=== PATIENT | male | born 1980 | race Hispanic/Latino ===

== ENCOUNTER 2017-01-18 23:01 | Emergency (ER) | payer SELFPAY | END 2017-01-18 23:30 | LOC: NAV ERS 23:01 | DX: K29.00 Acute gastritis without bleeding (principal); F17.210 Nicotine dependence, cigarettes, uncomplicated | CPT/HCPCS: 99283 ==

== ENCOUNTER 2023-03-06 20:02 | Emergency (ER) | payer OTHER, SELFPAY ==
[2023-03-06 20:28] LABS: #Basophils 0.1 thou/uL (0.0-0.2); #Eosinphils 0.3 thou/uL (0.0-0.7); #Lymphocytes 3.8 thou/uL (1.20-3.40); #Monocytes 0.7 thou/uL (0.11-0.59); #Neutrophils 6.4 thou/uL (1.40-6.50); %Basophils 0.8 % (0.0-1.0); %Eosinophils 2.4 % (0.0-10.0); %Lymphocytes 33.5 % (21.0-51.0); %Monocytes 5.9 % (0.0-10.0); %Neutrophils 57.3 % (42.0-75.0); Hemoglobin 16.7 g/dL (14.0-18.0); Mean Corpuscular HGB CONC 32.5 g/dL (32.0-36.0); Mean Corpuscular Hemoglobin 31.5 pg (27.0-31.0); Mean Corpuscular Volume 96.9 fl (78.0-98.0); Mean Platelet Volume 6.6 fL (7.4-10.4); Platelet Count 244 10x3/uL (130-400); RBC Distribution Width 12.8 % (11.5-14.5); Red Blood Cell (RBC) Count 5.31 mill/uL (4.70-6.10); White Blood Cell (WBC) Count 11.2 10x3/uL (4.8-10.8)
[2023-03-06 20:46] LABS: ALT (SGPT) 10 U/L (8-55); AST (SGOT) 20 U/L (5-34); Albumin 4.7 g/dL (3.5-5.0); Alcohol 201.2 mg/dL (Less than 10); Alkaline Phosphatase 62 U/L (40-110); Anion Gap 24 mmol/L (10-20); BUN (Urea Nitrogen) 15 mg/dL (8.9-20.6); Bilirubin, Total 0.4 mg/dL (0.2-1.2); Calc. Creatinine Clearance 0 mL/min (70-130); Calcium 10.2 mg/dL (7.8-10.44); Carbon Dioxide 16 mmol/L (22-29); Chloride 105 mmol/L (98-107); Estimated GFR 88; Globulin 3.9 g/dL (2.4-3.5); Glucose 96 mg/dL (70-105); Potassium 3.1 mmol/L (3.5-5.1); Protein, Total 8.6 g/dL (6.0-8.3); Sodium 142 mmol/L (136-145)
[2023-03-06] MEDS ORDERED: Bacitracin 1 PK ONE (20:59)
== END 2023-03-06 21:40 ==
LOC: NAV ERS 20:02
DX: S00.531A Contusion of lip, initial encounter (principal); S90.511A Abrasion, right ankle, initial encounter; S50.811A Abrasion of right forearm, initial encounter; F10.129 Alcohol abuse with intoxication, unspecified; E87.6 Hypokalemia; V57.0XXA Driver of pick-up truck or van injured in collision with fixed or stationary object in nontraffic accident, initial encounter; Y90.7 Blood alcohol level of 200-239 mg/100 ml
CPT/HCPCS: 70450; 72125; 80053; 80307; 85025